=== PATIENT | female | born 1970 ===

== ENCOUNTER → 2023-05-08 10:46 | Outpatient (CLI) | payer BC, SELFPAY ==
--- NOTE | ~2023-05-08 | US_ITS ---
Pelvic ultrasound. Clinical History: Postmenopausal bleeding Technique: Realtime transabdominal and transvaginal scanning of the pelvis was performed. Color flow Doppler and Doppler spectral analysis were performed. Findings: The uterus is anteverted, and measures 6.3 x 2.3 x 3.2 cm. The endometrial stripe has a th ickness of 3 mm. No focal mass is identified. Neither ovary seen. No adnexal mass seen. There is no evidence of free fluid in the cul de sac. Impression: Unremarkable uterus/endometrial stripe. Reviewed, dictated and finalized at location M. Impression: Unremarkable uterus/endometrial stripe.
== END ==
PROVIDERS: PCP Internal Medicine; Visit Provider Obstetrics & Gynecology Gynecology
DX: N95.0 Postmenopausal bleeding (principal)
CPT/HCPCS: 76830